=== PATIENT | female | born 1980 | race Caucasian/White ===

== ENCOUNTER 2023-01-15 06:25 | Day surgery (SDC) | payer OTHER ==
[~2023-01-15] VITALS: Ht 167.6 cm; Wt 81.6 kg
[~2023-01-15 06:25] MED LIST: COZAAR25 MG PO; LEVSIN/SL0.125 MG SL; PROTONIX40 MG PO
[2023-01-15] MEDS ORDERED: TRAM1TAB98 PO (10:47)
== END 2023-01-15 14:40 | disposition home or self-care (01) ==
LOC: CIR.AMB 06:25
PROVIDERS: ATTEND Obstetrics & Gynecology
DX: Z30.2 Encounter for sterilization (principal); Z20.822 Contact with and (suspected) exposure to COVID-19; I10 Essential (primary) hypertension